=== PATIENT | male | born 1985 | race Caucasian/White ===

== ENCOUNTER 2017-06-09 21:43 | Emergency (ER) | payer OTHER ==
[~2017-06-09] VITALS: Ht 182.9 cm; Wt 97.3 kg
[~2017-06-09 21:43] MED LIST: AMBIEN10 MG PO; FLEXERIL5 MG PO; GABAPENTIN300 MG PO; NAPROSYN500 MG PO; PERCOCET 5/31 TABLET PO; PROZAC40 MG PO; SUBOXONE 8 MG-1 EAC2 SL; SUBOXONE 8 MG-1 EACH SL; TORADOL10 MG PO; XANAX; XANAX1 MG PO; ZANTAC150 MG PO
[2017-06-09 22:34] LABS: BASOPHIL (%) 0.8 % (0-1); BASOPHIL COUNT 0.1 K/uL (0-0.1); EOSINOPHIL (%) 0.9 % (0-5); EOSINOPHIL COUNT 0.1 K/uL (0-0.3); HEMATOCRIT 46.7 % (38.0-50.0); HEMOGLOBIN 16.5 G/DL (12.5-16.6); IMMATURE GRANULOCYTE (%) 0.9 % (0.0-0.7); LYMPHOCYTE COUNT 2.6 K/uL (1.0-2.8); MCH 30.6 PG (29.0-34.0); MCHC 35.3 G/DL (30.0-36.0); MCV 86.5 FL (86-99); MONOCYTE (%) 5.5 % (3-12); MONOCYTE COUNT 0.7 K/uL (0-0.8); NEUTROPHIL (%) 72.9 % (45-76); NEUTROPHIL COUNT 9.8 K/uL (1.8-6.4); PLATELET COUNT 376 K/uL (156-360); RBC DIS.WIDTH-CV 12.9 % (11.8-14.6); RBC DIS.WIDTH-SD 40.3 % (39-53); WHITE BLOOD COUNT 13.5 K/uL (4.1-10.2)
[2017-06-09 22:43] LABS: ALBUMIN 4.6 g/dL (3.2-4.8); CHLORIDE 109 mEq/L (99-109); POTASSIUM 3.8 mEq/L (3.7-5.4); SODIUM 146 mEq/L (136-147)
[2017-06-09 22:44] LABS: AMYLASE 42 IU/L (1-118)
[2017-06-09 22:45] LABS: GLUCOSE 93 mg/dL (70-99)
[2017-06-09 22:46] LABS: TOTAL PROTEIN 7.7 g/dL (6.4-8.3)
[2017-06-09 22:47] LABS: TOTAL BILIRUBIN 0.3 mg/dL (0.0-1.0)
[2017-06-09 22:48] LABS: SERUM ETHYL ALCOHOL 287 mg/dL
[2017-06-09 22:49] LABS: ALKALINE PHOSPHATASE 99 IU/L (3-129); CREATININE 0.9 mg/dL (0.6-1.3); GFR ESTIMATE (CALCULATED) > 59 mL/min/ (58.99-99999)
[2017-06-09 22:50] LABS: UREA NITROGEN (BUN) 8 mg/dL (9-23)
[2017-06-09 22:51] LABS: AST (GOT) 34 IU/L (2-34)
[2017-06-09 22:52] LABS: ALT (GPT) 19 IU/L (3-49)
[2017-06-10 02:32] LABS: APPEARANCE SL.HAZY ((CLEAR)); BILIRUBIN NEGATIVE; BLOOD LARGE; COLOR YELLOW ((YELLOW)); GLUCOSE (STRIP) NEGATIVE; KETONES 5; LEUKOCYTES NEGATIVE; NITRITE NEGATIVE; PROTEIN (STRIP) NEGATIVE; UROBILINOGEN 0.2 MG/DL (0.2-1.0)
[2017-06-10 02:46] LABS: BACTERIA NONE SEEN /HPF; EPITHELIAL CELLS RARE /HPF; MUCUS 4+ /LPF; RED BLOOD CELLS RARE /HPF (0-5); WHITE BLOOD CELLS NONE SEEN /HPF (0-5)
[2017-06-10 06:31] VITALS: BP 120/75
== END 2017-06-10 06:35 | disposition short-term general hospital (02) ==
LOC: EME → TRA 21:43 → EME 21:43 → EDBD 21:43 → TRA 06-10 06:35
PROVIDERS: Emergency Medicine
DX: S02.40CA Maxillary fracture, right side, initial encounter for closed fracture (principal); S02.40EA Zygomatic fracture, right side, initial encounter for closed fracture; S02.31XA Fracture of orbital floor, right side, initial encounter for closed fracture; S02.609A Fracture of mandible, unspecified, initial encounter for closed fracture; S22.019A Unspecified fracture of first thoracic vertebra, initial encounter for closed fracture; S22.029A Unspecified fracture of second thoracic vertebra, initial encounter for closed fracture; S32.10XA Unspecified fracture of sacrum, initial encounter for closed fracture; F10.129 Alcohol abuse with intoxication, unspecified; Y90.8 Blood alcohol level of 240 mg/100 ml or more; V48.0XXA Car driver injured in noncollision transport accident in nontraffic accident, initial encounter; Y92.488 Other paved roadways as the place of occurrence of the external cause; F41.9 Anxiety disorder, unspecified; F32.9 Major depressive disorder, single episode, unspecified; F17.200 Nicotine dependence, unspecified, uncomplicated
CPT/HCPCS: 70450; 70486; 71260; 72125; 72129; 72132; 74177; 80053; 81003; 82150; 85025; 99281; 99285; G0480; J3010; J7030